=== PATIENT | male | born 1930 | race Caucasian/White ===

== ENCOUNTER 2017-07-17 03:39 | Inpatient (IN) | payer OTHER, MEDICARE ==
[~2017-07-17] VITALS: Ht 160 cm; Wt 58.2 kg
--- NOTE | 2017-07-17 03:46 | ED DYSPNEA/ASTHMA COMPLAINT ---
History of Present Illness General Chief Complaint: Dyspnea (COPD, CHF, Other) Stated Complaint: SOB Source: patient, family, old records, EMS Exam Limitations: clinical condition Vital Signs & Intake/Output Vital Signs & Intake/Output Vital Signs Date Time Temp Pulse Resp B/P B/P Pulse O2 O2 Flow FiO2 Mean Ox Delivery Rate 07/17 423 94 Nasal 2.0L Cannula 07/17 341 97 Nasal 2.0L Cannula 07/17 341 96.6 69 28 180/79 100 Ventilator 8L Allergies Coded Allergies: No Known Allergies (07/17/17) Reconcile Medications Allopurinol 100 MG TABLET 1 TAB PO DAILY GOUT (Reported) Amiodarone (Cordarone) 200 MG TAB 0.5 TAB PO Saturday HEART ( Reported) Aspirin (Ecotrin*) 81 MG TABLET.DR 1 TAB PO DAILY HEART HEALTH (Reported) Cholecalciferol (Vitamin D3) (Vitamin D) 1,000 UNIT TABLET 1 TAB PO DAILY BONE HEALTH (Reported) Ferrous Sulfate 325 MG (65 MG IRON) TABLET 1 TAB PO DAILY IRON (Reported) Finasteride 5 MG TABLET 1 TAB PO DAILY PROSTATE (Reported) Furosemide 20 MG TABLET 2 TAB PO 7:30AM CHF (Reported) Furosemide 20 MG TABLET 1 TAB PO QPM CHF (Reported) Labetalol HCl 100 MG TABLET 1 TAB PO TID HTN (Reported) Lisinopril 10 MG TABLET 1 TAB PO DAILY HTN (Reported) Minoxidil 10 MG TABLET 0.25 TAB PO DAILY HTN (Reported) Potassium Chloride 20 MEQ TAB.ER.PRT 1 TAB PO DAILY K REPLACEMENT (Reported) Pravastatin Sodium (Pravachol) 20 MG TABLET 1 TAB PO DAILY CHOL (Reported) Triage Nurses Notes Reviewed? yes Onset: Gradual Duration: day(s): Timing: recent history Severity: moderate Activities at Onset: none Prior Episodes/Possible Cause: occasional episodes Modifying Factors: Improves With: rest, other (improvedw/neb en route). Associated Symptoms: cough, wheezing HPI: 86 yo gentleman h/o copd, chf, presents with cough, phlegm, wheezing x 2-3 days, was seen by his PMD, prescribed antibiotics, but then tonight had increasing dyspnea, wheezing. 911 called. Pt with 02 sat 78% on his 2 liters NC via medics. Pt given duo neb en route with 02 sat 99%. He took an extra dose of lasix tonight. He has no fever, chest pain, diaphoresis. He is otherwise well. Past History Travel History Traveled to [place] past 21 day No Medical History Any Pertinent Medical History? see below for history Cardiovascular: CHF Respiratory: COPD Pneumonia Vaccine: 06/17/99 Influenza Vaccine: 05/15/10 Surgical History Surgical History: none Psychosocial History Who do you live with Spouse Services at Home None What is your primary language Belarusian Family History Hx Contributory? No Review of Systems Review of Systems Constitutional: Reports: no symptoms. EENTM: Reports: no symptoms. Respiratory: Reports: no symptoms. Cardiovascular: Reports: no symptoms. GI: Reports: no symptoms. Genitourinary: Reports: no symptoms. Musculoskeletal: Reports: no symptoms. Skin: Reports: no symptoms. Neurological/Psychological: Reports: no symptoms. Hematologic/Endocrine: Reports: no symptoms. Immunologic/Allergic: Reports: no symptoms. All Other Systems: Reviewed and Negative Physical Exam Physical Exam General Appearance: well developed/nourished, moderate distress Head: atraumatic, normal appearance Eyes: Bilateral: normal appearance. Ears, Nose, Throat: normal pharynx, normal ENT inspection Neck: normal inspection, supple, full range of motion Respiratory: rhonchi, wheezing, respiratory distress, prolonged expiratory phase Cardiovascular: regular rate/rhythm Gastrointestinal: normal bowel sounds, soft, non-tender, no organomegaly Extremities: normal inspection, normal capillary refill, normal range of motion, no edema Neurologic/Psych: no motor/sensory deficits, awake, alert, oriented x 3 Skin: intact, normal color, warm/dry Core Measures ACS in differential dx? No CVA/TIA Diagnosis No Sepsis Present: Yes Sepsis Focused Exam Completed? Yes Progress Differential Diagnosis: asthma, AMI, CHF, COPD, musculoskeletal pain, pneumonia Plan of Care: Orders Procedure Date/time Status Heart Healthy Diet 07/17 B Active TROPONIN LEVEL 07/17 1100 Active EKG 07/17 1100 Active TROPONIN LEVEL 07/17 0506 Active EKG 07/17 0506 Active ECHOCARDIOGRAM 07/17 0505 Active TRC EVALUATION (GEN) 07/17 050 Active OXYGEN SETUP (GEN) 07/17 050 Active Pathway - chart 07/17 050 Active House Staff 07/17 0503 Active Patient Data 07/17 050 Active Add-on Test (ER Only) 07/17 0454 Active Patient Data 07/17 448 Active Saline Lock 07/17 446 Active Misc Message 07/17 446 Active ED Holding Orders 07/17 446 Active Admit to inpatient 07/17 446 Active Vital Signs 07/17 446 Active Code Status 07/17 446 Active RAPID VIRAL INFLUENZA A 07/17 430 Complete URINALYSIS 07/17 427 Complete BLOOD CULTURE 07/17 349 Active B-TYPE NATRIURETIC PEP (BNP) 07/17 349 Active ARTERIAL BLOOD GAS (GEN) 07/17 345 Complete BLOOD CULTURE 07/17 345 Active TROPONIN LEVEL 07/17 344 Active LIPASE 07/17 344 Active HEPATIC FUNCTION PANEL 07/17 344 Active CBC WITHOUT DIFFERENTIAL 07/17 344 Complete BASIC METABOLIC PANEL 07/17 344 Active AMYLASE 07/17 344 Active EKG 07/17 339 Active VTE Mechanical Prophylaxis 07/17 UNK Active Vital Signs 07/17 UNK Active Telemetry/Licensed Esthetician 07/17 UNK Active Intake & Output 07/17 UNK Active FingerStick- Glucose 07/17 UNK Active Current Medications Sig/Rakesh Start time Last Medication Dose Stop Time Status Admin Enoxaparin Sodium 40 MG DAILY 07/17 1000 UNVr (Lovenox) Insulin Aspart 0 TIDAC 07/17 0800 UNVr (NovoLOG) Acetaminophen 650 MG Q6P PRN 07/17 514 UNVr (Tylenol) Acetaminophen 1,000 MG Q6P PRN 07/17 514 UNVr (Ofirmev) Morphine Sulfate 2 MG Q4P PRN 07/17 514 UNVr (Morphine) Oseltamivir Phosphate 75 MG ONCE ONE 07/17 514 UNVr (Tamiflu 75MG) 07/17 515 Furosemide 40 MG ONCE ONE 07/17 444 UNVr (Lasix) 07/17 445 Nitroglycerin 1 GM ONCE ONE 07/17 444 UNVr (Nitro-Bid) 07/17 445 Laboratory Tests 07/17/17 0430: pH 7.44, pCO2 37, pO2 184 H, HCO3 24, ABG O2 Sat (Measured) 99.0, P-50 (Temp Corrected) Y, Carboxyhemoglobin 0 L, O2 Concentration % 10 LPM, Temperature 96.6 L, O2 Delivery Method NEB VIA A/M, Phlebotomy Draw Site RIGHT RADIAL, Urine Color YEL, Urine Clarity CLEAR, Urine pH 6.0, Ur Specific [place] 1.015, Urine Protein NEG, Urine Ketones NEG, Urine Nitrite NEG, Urine Bilirubin NEG, Urine Urobilinogen 0.2, Ur Leukocyte Esterase NEG, Ur Microscopic SEDIMENT EXAMINED, Urine RBC RARE, Urine WBC RARE, Urine Bacteria RARE H, Urine Hemoglobin TRACE-INTACT H, Urine Glucose NEG 07/17/17 0350: Anion Gap 18 H, Estimated GFR 36 L, BUN/Creatinine Ratio 31.7 H, Glucose 110 H, Calcium 8.7, Total Bilirubin 0.7, Direct Bilirubin 0.4, AST 37, ALT 32, Alkaline Phosphatase 80, Troponin I 0.06, Cet-N-Rdpjwbgbdis Pept Pending, Total Protein 7.0, Albumin 4.1, Amylase 68, Lipase 192, CBC w Diff MAN DIFF ORDERED, RBC 4.16 L, MCV 92.2, MCH 30.2, MCHC 32.7 L, RDW 16.0 H, MPV 8.9, Gran % 86.1 H, Lymphocytes % 6.5 L, Monocytes % 7.3, Eosinophils % 0.1, Basophils % 0, Absolute Granulocytes 9.3 H, Segmented Neutrophils 83 H, Band Neutrophils 3, Absolute Lymphocytes 0.7 L, Lymphocytes 7 L, Monocytes 7, Absolute Monocytes 0.8 H, Absolute Eosinophils 0, Absolute Basophils 0, Platelet Estimate ADEQUATE , Polychromasia 1+, Hypochromic-Microcytic 1+, Poikilocytosis 1+, Ovalocytes 1+, Fld Total RBCs Counted 100 Microbiology 07/17 0435 NASOPHARYN: Influenza Virus A & B Rapid Smear - COMP INFLUENZA TYPE A 07/17 352 BLOOD: Blood Culture - RECD 07/17 349 BLOOD: Blood Culture - RECD Diagnostic Imaging: Viewed by Me: Radiology Read. Discussed w/RAD: Radiology Read. CXR Impression: interstitial edema PATIENT: ALIVIA CUNNINGHAM PRESENT AGE: 86 PATIENT ACCOUNT NO: [id number] : [birth year] LOCATION: [facility] ORDERING PHYSICIAN: Arcadio Toussaint MD SERVICE DATE: 07/17/17 EXAM TYPE: RAD - XRY-PORTABLE CHEST XRAY EXAMINATION: XR PORTABLE CHEST CLINICAL INFORMATION: Hypoxia COMPARISON: 06/21/2010 TECHNIQUE: Portable frontal view of the chest was obtained. FINDINGS: Cardiac leads overlie the chest. Increased interstitial markings with peribronchial cuffing. No pleural effusion or pneumothorax. The cardiomediastinal silhouette is prominent with a calcified aorta. IMPRESSION: Increased interstitial markings with peribronchial cuffing favoring interstitial edema, although a small airways process could have this appearance. DICTATED BY: Cam Dick MD DATE/TIME DICTATED:07/17/17402 COMMERCIAL LOAN ASSISTANT:[place] DATE/TIME TRANSCRIBED:07/17/17402 CONFIDENTIAL, DO NOT COPY WITHOUT APPROPRIATE AUTHORIZATION. <Electronically signed in Other Vendor System> SIGNED BY: Cam Dick MD 07/17/17406 Initial ED EKG: nsr, non specific st wave changes, pac, q waves Departure Departure Disposition: STILL A PATIENT Condition: Stable Clinical Impression Primary Impression: COPD exacerbation Secondary Impressions: CHF (congestive heart failure), Influenza, Renal failure, Sepsis Referrals: Kate Johnson MD (PCP/Family) Departure Forms: Customer Survey General Discharge Information Admission Note Spoke With: Brittany Perez MD Documentation of Exam: Documentation of any treatments & extenuating circumstances including Concerns Regarding Discharge (functional status, medication knowledge or non-compliance, living conditions, etc.) that warrant an admission rather than observation: pt with chf, influenza, copd exacerbation.... merits tamiflu, lasix, possibly with superimposed bacterial infection... pt given abx. Critical Care Note Critical Care Note Critical Care Time: 30-74 min
[2017-07-17 04:04] LABS: ABSOLUTE BASOPHIL COUNT 0 /CUMM (0.0-0.2); ABSOLUTE EOSINOPHIL COUNT 0 /CUMM (0.0-0.7); ABSOLUTE GRANULOCYTE CT 9.3 /CUMM (1.4-6.5); ABSOLUTE LYMPH COUNT 0.7 /CUMM (1.2-3.4); ABSOLUTE MONOCYTE COUNT 0.8 /CUMM (0.10-0.60); BASOPHIL % 0 % (0.0-2.0); EOSINOPHIL % 0.1 % (0-5); GRANULOCYTE % 86.1 % (42.2-75.2); HEMATOCRIT 38.4 % (42-52); MEAN CORPUSCULAR HGB 30.2 PG (27.0-31.0); MEAN CORPUSCULAR HGB CONC 32.7 G/DL (33.0-37.0); MEAN CORPUSCULAR VOLUME 92.2 FL (80.0-94.0); MEAN PLATELET VOLUME 8.9 FL (7.4-10.4); PLATELET COUNT 163 /CUMM (130-400); RED BLOOD CELL CT 4.16 /CUMM (4.70-6.10); WHITE BLOOD CELL COUNT 10.8 /CUMM (4.8-10.8)
--- NOTE | 2017-07-17 04:07 | RADIOLOGY REPORT ---
EXAMINATION: XR PORTABLE CHEST CLINICAL INFORMATION: Hypoxia COMPARISON: 06/21/2010 TECHNIQUE: Portable frontal view of the chest was obtained. FINDINGS: Cardiac leads overlie the chest. Increased interstitial markings with peribronchial cuffing. No pleural effusion or pneumothorax. The cardiomediastinal silhouette is prominent with a calcified aorta. IMPRESSION: Increased interstitial markings with peribronchial cuffing favoring interstitial edema, although a small airways process could have this appearance.
[2017-07-17] MEDS ORDERED: ALLOPURINOL100 M1 PO (04:57)
[2017-07-17] MEDS ORDERED: ASPIRIN EC81 M1 PO (04:59)
[2017-07-17] MEDS ORDERED: AMIODARONE HCL200 M1 PO (04:59)
[2017-07-17] MEDS ORDERED: VITAMIN D1000 UNIT PO (04:59)
[2017-07-17] MEDS ORDERED: FERROUS SULFAT325 M3 PO (05:00)
[2017-07-17] MEDS ORDERED: LABETALOL HCL100 M1 PO (05:01)
[2017-07-17] MEDS ORDERED: FINASTERIDE5 M1 PO (05:01)
[2017-07-17] MEDS ORDERED: LISINOPRIL10 M1 PO (05:02)
[2017-07-17] MEDS ORDERED: PRAVACHOL20 M2 PO (05:03)
[2017-07-17] MEDS ORDERED: POTASSIUM CHLO20 ME2 PO (05:03)
[2017-07-17] MEDS ORDERED: MINOXIDIL10 M1 PO (05:04)
[2017-07-17] MEDS ORDERED: FUROSEMIDE20 M1 PO ×2 (05:08→05:09)
--- NOTE | 2017-07-17 05:08 | History & Physical ---
Poncho PATEL,Pato 07/17/17 0507: General Information and HPI MD Statement: I have seen and personally examined ALIVIA CUNNINGHAM and documented this H&P. The patient is a 86 year old M who presented with a patient stated chief complaint of [shortness of breath]. Source of Information: patient, family, old records Exam Limitations: no limitations History of Present Illness: Patient is an 86-year-old male with a PMH significant for CAD status post angioplasty, HTN, COPD using 2L O2 NC PRN, CHF, CKD, recent compression fracture with decreased mobility, who presents complaining of worsening shortness of breath. For the past 45 days patient reports productive cough with yellow sputum and wheezing. He presented to his PCP one day prior to admission who prescribed 2 antibiotics however the patient and his family do not recall the names, and she took 1 dose of these prior to presentation. He reports taking 2 extra doses of furosemide and attempts to alleviate his worsening shortness of breath. When this did not alleviate his SOB is family called 911. Patient has had numerous previous admissions for CHF exacerbations and at baseline he becomes fatigued with minimal exertion. He has had a significant decrease in his mobility after a L2 compression fracture in early June. EMS reports that his O2 saturation was 78% when they arrived on 2 L O2 NC. His was sick with flu like symptoms last week she did not get tested. Patient denies any chest pain, palpitations, lower extremity edema, lightheadedness, dizziness, loss of consciousness, diaphoresis, nausea, vomiting, fever, chills. Allergies/Medications Allergies: Coded Allergies: No Known Allergies (07/17/17) Past History Travel History Traveled to [place] past 21 day No Medical History Cardiovascular: CHF Respiratory: COPD Renal: chronic kidney disease, hematuria Cancer(s): basal cell carcinoma Pneumonia Vaccine: 06/17/99 Influenza Vaccine: 05/15/10 Surgical History Surgical History: angioplasty, bilateral CEA Past Family/Social History Psychosocial History Where do you live? Home Services at Home: None Smoking Status: Former Smoker (50 pack years) ETOH Use: heavy use (daily) Functional Ability Ambulation: non-ambulatory (since injury on 06/18/17) Review of Systems Review of Systems Constitutional: Denies: chills, diaphoresis, fever. EENTM: Reports: no symptoms. Cardiovascular: Denies: chest pain, palpitations, peripheral edema, syncope. Respiratory: Reports: cough, short of breath, sputum production. GI: Denies: diarrhea, nausea, bloody stool, vomiting. Genitourinary: Denies: dysuria, frequency, hematuria. Musculoskeletal: Reports: back pain, muscle pain (chronic LE pain). Exam & Diagnostic Data Last 24 Hrs of Vital Signs/I&O Vital Signs Date Time Temp Pulse Resp B/P B/P Pulse O2 O2 Flow FiO2 Mean Ox Delivery Rate 07/17 0522 98.6 64 24 152/69 98 Nasal 2.0L Cannula 07/17 0424 94 Nasal 2.0L Cannula 07/17 341 97 Nasal 2.0L Cannula 07/17 341 96.6 69 28 180/79 100 Ventilator 8L Intake & Output 07/17 0800 07/17 0000 07/16 1600 Intake Total 250 Output Total 350 Balance -100 Intake, IV 250 Output, Urine 350 Patient 134 lb Weight Physical Exam General Appearance Alert, Oriented X3, Cooperative, No Acute Distress Skin Temp/Moisture Exam: Warm/Dry Sepsis Skin Exam (color): Normal for Ethnicity HEENT Atraumatic, EOMI, Mucous Membr. moist/pink Cardiovascular Regular Rate, Normal S1, Normal S2, No Murmurs Lungs diffuse rhonchi and wheezing Abdomen Normal Bowel Sounds, Soft, No Tenderness Neurological Normal Speech, Sensation Intact Extremities No Clubbing, No Cyanosis, No Edema, Normal Pulses, No Tenderness/ Swelling Sepsis Peripheral Pulse Location: Posterior Tibialis Sepsis Peripheral Pulse Exam: Normal Sepsis Cap Refill Exam: <2 Sec Last 24 Hrs of Labs/Niraj: Laboratory Tests 07/17/17 0506: Troponin I Cancelled 07/17/17 0430: pH 7.44, pCO2 37, pO2 184 H, HCO3 24, ABG O2 Sat (Measured) 99.0, P-50 (Temp Corrected) Y, Carboxyhemoglobin 0 L, O2 Concentration % 10 LPM, Temperature 96.6 L, O2 Delivery Method NEB VIA A/M, Phlebotomy Draw Site RIGHT RADIAL, Urine Color YEL, Urine Clarity CLEAR, Urine pH 6.0, Ur Specific [place] 1.015, Urine Protein NEG, Urine Ketones NEG, Urine Nitrite NEG, Urine Bilirubin NEG, Urine Urobilinogen 0.2, Ur Leukocyte Esterase NEG, Ur Microscopic SEDIMENT EXAMINED, Urine RBC RARE, Urine WBC RARE, Urine Bacteria RARE H, Urine Hemoglobin TRACE-INTACT H, Urine Glucose NEG 07/17/17 0350: Anion Gap 18 H, Estimated GFR 36 L, BUN/Creatinine Ratio 31.7 H, Glucose 110 H, Calcium 8.7, Total Bilirubin 0.7, Direct Bilirubin 0.4, AST 37, ALT 32, Alkaline Phosphatase 80, Troponin I 0.06, Wgz-L-Mqbdedvvcid Pept 55006 H, Total Protein 7.0, Albumin 4.1, Amylase 68, Lipase 192, CBC w Diff MAN DIFF ORDERED, RBC 4.16 L, MCV 92.2, MCH 30.2, MCHC 32.7 L, RDW 16.0 H, MPV 8.9, Gran % 86.1 H, Lymphocytes % 6.5 L, Monocytes % 7.3, Eosinophils % 0.1, Basophils % 0, Absolute Granulocytes 9.3 H, Segmented Neutrophils 83 H, Band Neutrophils 3, Absolute Lymphocytes 0.7 L, Lymphocytes 7 L, Monocytes 7, Absolute Monocytes 0.8 H, Absolute Eosinophils 0, Absolute Basophils 0, Platelet Estimate ADEQUATE , Polychromasia 1+, Hypochromic-Microcytic 1+, Poikilocytosis 1+, Ovalocytes 1+, Fld Total RBCs Counted 100 Microbiology 07/17 0435 NASOPHARYN: Influenza Virus A & B Rapid Smear - COMP INFLUENZA TYPE A 07/17 352 BLOOD: Blood Culture - RECD 07/17 349 BLOOD: Blood Culture - RECD Diagnostic Data EKG Results NSR HR 68 PAC diffuse T wave inversion [place] 199 QTc 532 CXR Results Increased interstitial markings with peribronchial cuffing Assessment/Plan Assessment: Patient is an 86-year-old male with a PMH significant for CAD status post angioplasty, HTN, COPD using 2L O2 NC PRN, CHF, CKD, gout recent compression fracture with decreased mobility, who presents complaining of worsening shortness of breath. Patient has had numerous admissions for CHF exacerbations in the past, normally goes to [facility]. He has had a 4-5 day history of productive cough and wheezing. VS on admission: T 96.6, P 69, RR 28, BP 180/79, pulse ox 100% on 8 L Labs on admission: WBC 10.8, H/H 12.6/30.4, PLT 163, Na 143, K 4.1, Cl 98, CO2 27, BUN 57, Cr 1.8, GLUCOSE 110, AB.44/37/184/24, UA unremarkable, rapid flu swab positive for influenza type A, ProBNP 14,200 Problem list #Multifactorial shortness of breath #CHF exacerbation #COPD exacerbation #Influenza #History of DM (diet controlled), HTN, CKD (baseline creatinine unknown, possibly REYNALDO), gout, L2 compression fx Plan -Admit to telemetry -Continuous pulse ox and telemetry monitoring -Rule out ACS with serial troponin and EKG -Obtain most recent echo report from computer designer -obtain baseline BUN/Cr and base lasix dosing on renal function in AM -TRC/Nebs -IV Solu-Medrol 40 mg every 12 -Tamiflu -Flu precautions -sputum culture -fingerstick glucose TIDAC/HS -Novolog sliding scale look sliding scale As Ranked By This Provider Problem List: 1. COPD exacerbation 2. CHF (congestive heart failure) 3. Influenza Core Measures/Misc (03/03) Acute Coronary Syndrome ACS Diagnosis: No Congestive Heart Failure Congestive Heart Failure Diagnosis Yes Last Known EF % 60 Cerebrovascular Accident CVA/TIA Diagnosis: No VTE (View Protocol) VTE Risk Factors Immobility No Mechanical VTE Prophylaxis d/t N/A MechProphylax Ordered No VTE Pharm Prophylaxis d/t NA PharmProphylax ordered Sepsis (View protocol) Sepsis Present: No Brittany Perez 07/17/17 0554: General Information and HPI Allergies/Medications Home Med list Allopurinol 100 MG TABLET 1 TAB PO DAILY GOUT (Reported) Amiodarone (Cordarone) 200 MG TAB 0.5 TAB PO Saturday HEART ( Reported) Aspirin (Ecotrin*) 81 MG TABLET.DR 1 TAB PO DAILY HEART HEALTH (Reported) Cholecalciferol (Vitamin D3) (Vitamin D) 1,000 UNIT TABLET 1 TAB PO DAILY BONE HEALTH (Reported) Ferrous Sulfate 325 MG (65 MG IRON) TABLET 1 TAB PO DAILY IRON (Reported) Finasteride 5 MG TABLET 1 TAB PO DAILY PROSTATE (Reported) Furosemide 20 MG TABLET 2 TAB PO 7:30AM CHF (Reported) Furosemide 20 MG TABLET 1 TAB PO QPM CHF (Reported) Labetalol HCl 100 MG TABLET 1 TAB PO TID HTN (Reported) Lisinopril 10 MG TABLET 1 TAB PO DAILY HTN (Reported) Minoxidil 10 MG TABLET 0.25 TAB PO DAILY HTN (Reported) Potassium Chloride 20 MEQ TAB.ER.PRT 1 TAB PO DAILY K REPLACEMENT (Reported) Pravastatin Sodium (Pravachol) 20 MG TABLET 1 TAB PO DAILY CHOL (Reported) Attending MD Review Statement Attending Statement Attending MD Statement: examined this patient, discuss w/resident/PA/HOURLY SHIFT, agreed w/resident/PA/HOURLY SHIFT, discussed with family, reviewed EMR data (avail), reviewed images, amended to note Attending Assessment/Plan: CC: Acute worsening of shortness of breath PMH: Gout, diet-controlled diabetes, COPD (2 L NC intermittent), HTN, HF History is obtained from patient's daughter, patient is hard of hearing. Daughter noticed since last 3-4 days patient has having excessive cough with yellow colored sputum production, difficulty breathing. 2 days back he was seen by a physician and was prescribed 2 different types of antibiotics, patient may have taken one dose. Breathing and cough was progressively getting worse, over the evening the breathing was so difficult that they had to call EMS. Patient took 2 extra doses of furosemide before coming to ER. Patient's was sick last week probably influenza but not tested. Patient's symptoms did not start with nasal congestion, runny nose did not have any fever or myalgias. Patient currently and denies any chest pain, chest tightness and is feeling much better as compared to when he came in. Patient usually gets admitted in [facility] for heart failure or COPD. vitals: T max 98.6, pulse 64, RR 28, blood pressure 180/79 on arrival, saturating 100% on 2 L. On exam: A O 3, cooperative, thin built, mild respiratory distress, neck supple , JVD elevated, no lymphadenopathy, mucosa moist, no focal neurological deficit, no dependent edema, no obvious skin rashes or inflammation CVS: S1-S2, irregular. RS: Bilateral crackles and rhonchi. Abdomen: Soft, NT, ND, bowel sounds present. Labs: WBC 10.8, hemoglobin 12.6, hematocrit 38.4, platelets 163, neutrophils 86% , bands 3, sodium 143, potassium 4.1, chloride 98, right 27, BUN 57, creatinine 1.8, anion gap 18, glucose 110, calcium 8.7, LFT unremarkable, troponin 0.06 AB.44/37/184/24 on 10 L UA: Unremarkable Influenza A+ CXR:Increased interstitial markings with peribronchial cuffing favoring interstitial edema, although a small airways process could have this appearance. Assessment and plan 86-year-old male with above-mentioned past medical history presented in ER for acute worsening of shortness of breath. Patient has been noticing cough and yellow colored sputum production since last 3-4 days but this breathing got progressively worse and today he had to call EMS. He took couple of tablets of furosemide before calling EMS, which is started working by the time he arrived. He was immediately started on DuoNeb, combination of both by mouth furosemide and your develops his respiration was much better by the time he was in ER. He has elevated JVD, coarse crackles and rhonchi bilaterally but no significant pedal edema. He denies any chest pain and chest tightness. X-ray suggestive of interstitial marking probably secondary to heart failure. Small airway disease could not be excluded as patient also has influenza A+. Sick contacts. Pulse is irregular, daughter states that patient may have history of A. fib. Patient is not currently on any anticoagulation. Daughter requests not to change much of his cardiac medications because it has been difficult to manage, patient's computer designer Dr. Weir should be consulted before making changes. Creatinine is 1.8, baseline not known. He also had compression fracture of L2 vertebra approximately a month back and has been using a back brace at home, not much ambulating. + Acute on chronic heart failure with unknown ejection fraction + Influenza a + Creatinine 1.8 : REYNALDO Vs CKD + History of Gout, diet-controlled diabetes, COPD, HTN, HF - Admit to telemetry - Continuous telemetry monitoring - Try to wean off oxygen - Diuresis according to computer designer and next creatinine - Strict I's and O's - Daily weights - Serial troponin and EKGs - 2-D echo in a.m. if any EKG changes or elevated troponin, obtain his recent 2- D echo report from his computer designer - Cardiology consult in a.m. - DVT prophylaxis - Continue Tamiflu - Continue TRC and nebulization - Accu-Cheks - IV Solu-Medrol 40 mg twice a day - Continue back brace - Continue rest of his home medications Yomi PATEL,Krjammiei 07/17/17 0651: Resident Review Statement Resident Statement: examined this patient, discussed with staff internist office based only, agreed with staff internist office based only, discussed with family Other Findings: HPI: This is an 86-year-old male with PMH of COPD on 2 L O2, CHF (last exacerbation almost 1 year ago), CAD status post angioplasty, diet controlled diabetes, hypertension, previous history of A. fib, and a recent compression fracture of L2 on June 2017, who comes in for chief complaint of shortness of breath. Patient noted significant work of breathing at rest for about 1 or 2 hours this evening. He took 2 extra tabs of his diuretic thinking it would help , however, when his symptoms do not improve he called EMS. He was found to be satting around 78% on his baseline 2 L and subsequently brought to ED. Patient states that he has been noticing worsening cough and wheezing for about the last week or so. This past Saturday he went to see his PCP and was prescribed 2 antibiotics. He only took one of them for one dose. He is unsure of the medications. Apparently a chest x-ray was done at that time and was largely normal. Denies any fevers, chills, body aches, malaise, vomiting, diarrhea, change in bladder or bowel movement. He endorses sick contact in his who had URI symptoms about a week ago. Notably patient has lost 18 pounds since last April and weight loss seems to be accelerated after compression fracture. He sees computer designer Bob Marques and mower sharpener Fredi Rangel. Patient has long history of CHF and states anytime he becomes short of breath usually takes an extra dose of his diuretic which usually resolves the symptoms. He took 2 today but found no relief which is why he came to the ED. Surgical history significant for endarterectomy, multiple cardiac cath, social history significant for [id number] smoking history but quit over 30 years ago. ED workup shows: Positive influenza, AB.44, PCO2 37, bicarbonate 24. BUN 57, creatinine 1.8, with a gap of 18. Chest x-ray shows increased interstitial markings with peribronchial cuffing with possible interstitial edema versus small airway process. EKG shows rate 68 with diffuse T-wave inversion. QTc 532. One PAC ASSESSMENT: This is an 86-year-old gentleman with past medical history of COPD on 2 L, CHF, CAD, diet controlled DM, hypertension, recent compression fracture, who comes in for chief complaint of shortness of breath. He was influenza positive in ED. Additionally, evidence of interstitial edema on x-ray, prominent JVD, and lung exam with significant crackles wheezing and rhonchi patient likely has concurrent exacerbation of heart failure. PLAN: CHF: Patient sees Dr. Bob Marques for cardiology. Apparently he saw his specialist about a month ago. Daughter states that he also had an echocardiogram at that time. Please obtain records. His baseline regimen is Lasix 20mg in pm and 40mg at am. On day of admission he took an additional 40mg at night and in ER he got 40mg IV. Monitor Cr in AM and reassess Lasix regimen. * Cardio consult with Dr. Byrne * If echocardiogram unavailable or patient significantly decompensates consider getting an echo * Get records from his computer designer * Troponin/ EKG * Strict I's and O's * Sputum culture Question AK I: Patient's creatinine 1.8. Records we have from his previous visit in 2009 shows values between 1.1-1.4. Unsure of patient's baseline. He is having good urine output. Obtain records. Diurese with caution. Note patient got 40 of IV Lasix in ED in addition to his home regimen plus tabs * Monitor urine output * Obtain records * Hold lisinopril * Hold allopurinol * Avoid NSAIDs Influenza: * Start Tamiflu * Precautions Diabetes: * Regular Insulin sliding scale * Fingerstick COPD: Patient received 125 of IV Solu-Medrol in ED. He is back to his baseline 2 L O2. * Continue steroids at 40 every 12. Hypertension: * Continue labetalol 100 mg po BID * Holding Lisinopril Prev hx of a.fib: * Con't Amiodarone 200mg; .5 TAB PO MWF * Con't ASA Recent compresion fracture: * Con't back brace FC CHEM DVT PPX HH Diet
--- NOTE | 2017-07-17 05:56 | Admission Certification ---
Admission Certification Certification Statement - As attending physician, I certify that at the time of - admission, based on clinical presentation, severity of - symptoms, need for further diagnostic testing and - therapeutic interventions, and risk of adverse outcomes - without in-hospital treatment, in my clinical assessment, - this patient requires an acute hospital stay for a minimum - of two nights or longer. I have also considered psychsocial - factors such as support system, advanced age, financial - issues, cognitive issues, and failed out-patient treatments, - past re-admission history, safety of patient, and lack of - compliance as applicable. Specific rationale supporting this admission is: Acute and chronic heart failure, influenza
--- NOTE | 2017-07-17 07:40 | Event Note ---
Event Note Event Note: 86 yo M with pmh of COPD on 2L/min O2 baseline, CHF 40/20 mg Lasix baseline, CAD s/p angioplasty, HTN, CKD (Cr 1.2 baseline at 2009), L2 compression fracture came in with increased shortness of breath x 1 day and cough and wheeze x 1 week. 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 This AM, he is resting in the bed, on O2 via NC, not in distress but still coughing. O2 running between 2-3 L/min (baseline 2L/min). He is currently admitted in the tele for management of folowing issues: # Acute on Chronic CHF: Will continue diuretic therpay with IV Lasix 40 mg daily. Daily I/O and weight monitoring. BEP check tomorrow. Echocardiogram ordered. Requested for medical records from [facility] cardiology unit/echo. Will follow Cardiology recs. #COPD Exacerbation: Likely 2/2 Influenza infection. Will treat with Tamiflu, as well as steroids. IV solumedrol q12 h today. If improving, will change to PO Prednisone tomorrow. #Influenza A: Will continue Tamiflu per renal dose which is 30 mg daily (regualr dose is 75 mg BID otherwise). Continue resp precautions with masks and hand washing. #Diet: Heart healthy diet #DVT ppx: SC heparin #Code status: Full code
--- NOTE | 2017-07-17 10:17 | Cons- Cardiology ---
General Information and HPI Consulting Request Date of Consult: 07/17/17 Requested By: Brittany Perez MD Reason for Consult: Congestive heart failure in a patient with known heart disease. Source of Information: patient, old records Exam Limitations: language barrier History of Present Illness: The patient is an 86-year-old man who is taken care of mostly in the [place] area. His a&p technician is Dr. Carrera. He was last here in 2009 with an episode of congestive heart failure. An echo at that time showed mild aortic stenosis and good LV systolic function and mild pulmonary hypertension. The patient states he has had 2 or 3 days of increasing shortness of breath and came to the emergency room this morning. He was found to be in congestive heart failure on chest x-ray. His BNP is 14,200 and his initial troponin is negative. His EKG shows a lot of chronic changes but no acute changes. He denies chest pain at this time. He is an ex-smoker. Allergies/Medications Allergies: Coded Allergies: No Known Allergies (07/17/17) Home Med List: Allopurinol 100 MG TABLET 1 TAB PO DAILY GOUT (Reported) Amiodarone (Cordarone) 200 MG TAB 0.5 TAB PO Saturday HEART ( Reported) Aspirin (Ecotrin*) 81 MG TABLET.DR 1 TAB PO DAILY HEART HEALTH (Reported) Cholecalciferol (Vitamin D3) (Vitamin D) 1,000 UNIT TABLET 1 TAB PO DAILY BONE HEALTH (Reported) Ferrous Sulfate 325 MG (65 MG IRON) TABLET 1 TAB PO DAILY IRON (Reported) Finasteride 5 MG TABLET 1 TAB PO DAILY PROSTATE (Reported) Furosemide 20 MG TABLET 2 TAB PO 7:30AM CHF (Reported) Furosemide 20 MG TABLET 1 TAB PO QPM CHF (Reported) Labetalol HCl 100 MG TABLET 1 TAB PO TID HTN (Reported) Lisinopril 10 MG TABLET 1 TAB PO DAILY HTN (Reported) Minoxidil 10 MG TABLET 0.25 TAB PO DAILY HTN (Reported) Potassium Chloride 20 MEQ TAB.ER.PRT 1 TAB PO DAILY K REPLACEMENT (Reported) Pravastatin Sodium (Pravachol) 20 MG TABLET 1 TAB PO DAILY CHOL (Reported) Current Medications: Current Medications Sig/Rakesh Start time Last Medication Dose Route Stop Time Status Admin Acetaminophen 650 MG Q6P PRN 07/17 514 AC PO Acetaminophen 1,000 MG Q6P PRN 01/31 0515 AC IV Albuterol Sulfate 3 ML ONCE ONE 07/17 0400 DC 07/17 INH 07/17 040 0424 Amiodarone HCl 100 MG 07/17 1000 AC PO Aspirin Buffered 81 MG DAILY 07/17 1000 AC PO Azithromycin 500 MG ONCE ONE 07/17 0400 DC 07/17 Dextrose/Water 250 ML IV 07/17 0459 0424 Ceftriaxone Sodium 0 .STK-MED ONE 07/17 0419 DC .ROUTE Ceftriaxone Sodium 1,000 MG ONCE ONE 07/17 0400 DC 07/17 IV 07/17 040 0424 Enoxaparin Sodium 30 MG DAILY 07/17 1000 AC SC Finasteride 5 MG DAILY 07/17 1000 AC PO Furosemide 0 .STK-MED ONE 07/17 0518 DC IV Furosemide 40 MG ONCE ONE 07/17 0445 DC 07/17 IV 07/17 044 0523 Insulin Aspart 0 TIDAC 07/17 0800 AC SC Ipratropium [place] 2.5 ML ONCE ONE 07/17 0400 DC 07/17 INH 07/17 400 0424 Labetalol HCl 100 MG TID 07/17 1000 AC PO Methylprednisolone 40 MG Q12 07/17 1000 AC IV Methylprednisolone 0 .STK-MED ONE 07/17 0418 DC .ROUTE Methylprednisolone 125 MG ONCE ONE 07/17 0345 DC 07/17 IV 07/17 034 0420 Morphine Sulfate 2 MG Q4P PRN 07/17 0515 AC IV Nitroglycerin 0 .STK-MED ONE 07/17 0518 DC TOP Nitroglycerin 1 GM ONCE ONE 07/17 0445 DC 07/17 TOP 07/176 0523 Oseltamivir Phosphate 75 MG BID 07/17 1000 CAN PO 07/21 0959 Oseltamivir Phosphate 30 MG ONCE ONE 07/17 0530 CAN PO 07/17 0531 Oseltamivir Phosphate 30 MG ONCE ONE 07/17 0515 DC 07/17 PO 07/17 0516 0532 Pravastatin Sodium 20 MG DAILY 07/17 1000 AC PO Review of Systems Review of Systems: He has no complaints in the review of systems at this time. Past History Travel History Traveled to [place] past 21 day No Medical History Cardiovascular: CHF Respiratory: COPD Renal: chronic kidney disease, hematuria Cancer(s): basal cell carcinoma Surgical History Surgical History: angioplasty bilateral CEA Psychosocial History Where Do You Live? Home Services at Home: None Smoking Status: Former Smoker (50 pack years) ETOH Use: heavy use (daily) Functional Ability Ambulation: non-ambulatory (since injury on 06/18/17) Exam & Diagnostic Data Vital Signs and I&O Vital Signs Date Time Temp Pulse Resp B/P B/P Pulse O2 O2 Flow FiO2 Mean Ox Delivery Rate 07/17 0850 98.0 87 20 164/74 97 Nasal 3.0L Cannula 07/17 0645 97.5 54 20 154/70 96 Nasal 3.0L Cannula 07/17 05 98.6 64 24 152/69 98 Nasal 2.0L Cannula 07/17 0424 94 Nasal 2.0L Cannula 07/17 341 97 Nasal 2.0L Cannula 07/17 341 96.6 69 28 180/79 100 Ventilator 8L Intake & Output 07/17 1600 07/17 0800 07/17 0000 07/16 1600 07/16 0800 07/16 0000 Intake Total 120 250 Output Total 200 850 Balance -80 -600 Intake, IV 250 Intake, Oral 120 Output, Urine 200 850 Patient 134 lb Weight Physical Exam: Elderly man in mild respiratory distress HEENT exam normal Neck veins not distended Carotids normal Chest diffuse coarse rales rhonchi and some mild wheezing Heart slightly irregular rhythm grade 2 to 3/6 systolic ejection murmur at the base Extremities no edema Labs/Niraj Results: Laboratory Tests 07/17 07/17 07/17 0948 0506 0431 Chemistry Sodium Pending Potassium Pending Chloride Pending Carbon Dioxide Pending Anion Gap Pending BUN Pending Creatinine Pending BUN/Creatinine Ratio Pending Troponin I Pending Cancelled Hematology CBC w Diff Pending WBC Pending RBC Pending Hgb Pending Hct Pending MCV Pending MCH Pending MCHC Pending RDW Pending Plt Count Pending MPV Pending Serology Virus Culture Pending 07/17 07/17 0430 0350 Blood Gas pH (7.35 - 7.45 PH) 7.44 pCO2 (35 - 45 TORR) 37 pO2 (80 - 100 TORR) 184 H HCO3 (21 - 28 MEQ/L) 24 ABG O2 Sat (Measured) (>96.0 %) 99.0 P-50 (Temp Corrected) Y Carboxyhemoglobin (1.5 - 5.0 %) 0 L O2 Concentration % 10 LPM Temperature (97.0 - 100.0 FARH) 96.6 L O2 Delivery Method NEB VIA A/M Chemistry Sodium (137 - 145 mmol/L) 143 Potassium (3.5 - 5.1 mmol/L) 4.1 Chloride (98 - 107 mmol/L) 98 Carbon Dioxide (22 - 30 mmol/L) 27 Anion Gap (5 - 16) 18 H BUN (9 - 20 mg/dL) 57 H Creatinine (0.7 - 1.2 mg/dL) 1.8 H Estimated GFR (>60 ml/min) 36 L BUN/Creatinine Ratio (7 - 25 %) 31.7 H Glucose (65 - 99 mg/dL) 110 H Calcium (8.4 - 10.2 mg/dL) 8.7 Total Bilirubin (0.2 - 1.3 mg/dL) 0.7 Direct Bilirubin (< 0.4 mg/dL) 0.4 AST (17 - 59 U/L) 37 ALT (21 - 72 U/L) 32 Alkaline Phosphatase (< 127 U/L) 80 Troponin I (<0.11 ng/ml) 0.06 Dmc-U-Zeovpiudpma Pept (<125 pg/mL) 18928 H Total Protein (6.3 - 8.2 g/dL) 7.0 Albumin (3.5 - 5.0 g/dL) 4.1 Amylase (30 - 110 U/L) 68 Lipase (23 - 300 U/L) 192 Hematology CBC w Diff MAN DIFF ORDERED WBC (4.8 - 10.8 /CUMM) 10.8 RBC (4.70 - 6.10 /CUMM) 4.16 L Hgb (14.0 - 18.0 G/DL) 12.6 L Hct (42 - 52 %) 38.4 L MCV (80.0 - 94.0 FL) 92.2 MCH (27.0 - 31.0 PG) 30.2 MCHC (33.0 - 37.0 G/DL) 32.7 L RDW (11.5 - 14.5 %) 16.0 H Plt Count (130 - 400 /CUMM) 163 MPV (7.4 - 10.4 FL) 8.9 Gran % (42.2 - 75.2 %) 86.1 H Lymphocytes % (20.5 - 51.1 %) 6.5 L Monocytes % (1.7 - 9.3 %) 7.3 Eosinophils % (0 - 5 %) 0.1 Basophils % (0.0 - 2.0 %) 0 Absolute Granulocytes (1.4 - 6.5 /CUMM) 9.3 H Segmented Neutrophils (42.2 - 75.2 %) 83 H Band Neutrophils (0.0 - 5.0 %) 3 Absolute Lymphocytes (1.2 - 3.4 /CUMM) 0.7 L Lymphocytes (20.5 - 51.1 %) 7 L Monocytes (1.7 - 9.3 %) 7 Absolute Monocytes (0.10 - 0.60 /CUMM) 0.8 H Absolute Eosinophils (0.0 - 0.7 /CUMM) 0 Absolute Basophils (0.0 - 0.2 /CUMM) 0 Platelet Estimate (ADEQUATE) ADEQUATE Polychromasia 1+ Hypochromic-Microcytic 1+ Poikilocytosis 1+ Ovalocytes 1+ Miscellaneous Phlebotomy Draw Site RIGHT RADIAL Other Body Source Fld Total RBCs Counted (%) 100 Urines Urine Color (YEL,AMB,STR) YEL Urine Clarity (CLEAR) CLEAR Urine pH (5.0 - 8.0) 6.0 Ur Specific [place] (1.001 - 1.035) 1.015 Urine Protein (NEG,<30 MG/DL) NEG Urine Ketones (NEG) NEG Urine Nitrite (NEG) NEG Urine Bilirubin (NEG) NEG Urine Urobilinogen (0.1 - 1.0 EU/dl) 0.2 Ur Leukocyte Esterase (NEG) NEG Ur Microscopic SEDIMENT EXAMINED Urine RBC (0 - 5 /HPF) RARE Urine WBC (0 - 2 /HPF) RARE Urine Bacteria (NEG/NONE) RARE H Urine Hemoglobin (NEG) TRACE-INTACT H Urine Glucose (N MG/DL) NEG Diagnostic Data EKG Results EKG shows sinus rhythm rate of 68, occasional PAC, diffuse ST-T wave abnormalities, prolonged QT interval. CXR Results PATIENT: ALIVIA CUNNINGHAM PRESENT AGE: 86 PATIENT ACCOUNT NO: [id number] : [birth year] LOCATION: [facility] ORDERING PHYSICIAN: Arcadio Toussaint MD SERVICE DATE: 07/17/178472 EXAM TYPE: RAD - XRY-PORTABLE CHEST XRAY EXAMINATION: XR PORTABLE CHEST CLINICAL INFORMATION: Hypoxia COMPARISON: 06/21/2010 TECHNIQUE: Portable frontal view of the chest was obtained. FINDINGS: Cardiac leads overlie the chest. Increased interstitial markings with peribronchial cuffing. No pleural effusion or pneumothorax. The cardiomediastinal silhouette is prominent with a calcified aorta. IMPRESSION: Increased interstitial markings with peribronchial cuffing favoring interstitial edema, although a small airways process could have this appearance. DICTATED BY: Cam Dick MD DATE/TIME DICTATED:07/17/17402 PRECISION LENS TECHNICIAN:[place] DATE/TIME TRANSCRIBED:07/17/17402 CONFIDENTIAL, DO NOT COPY WITHOUT APPROPRIATE AUTHORIZATION. <Electronically signed in Other Vendor System> SIGNED BY: Mayelin PATEL,Cam 07/17 Assessment/Plan Assessment/Plan The patient is an 86-year-old man with known coronary artery disease with previous stenting but apparently not bypass surgery. He also has a history of paroxysmal atrial fibrillation but is in sinus rhythm at this time.. He was last here in 2009 with congestive heart failure. It is unclear whether he has had hospitalizations in the interim. He presents with shortness of breath. His chest x-ray shows clear-cut congestive heart failure and cardiomegaly. He has had some degree of aortic stenosis in the past and this may have progressed. I recommend IV diuretics and an echocardiogram for now. I would keep him on his usual medical regimen except to change his diuretics to intravenous. We will get serial EKGs and enzymes. I recommend getting records from his regular a&p technician to see if there are any other issues that need to be addressed at this time. Copies To: Elizabeth PATEL,Kate Grimaldo; Deandre PATEL,Bob Logan Consult Acknowledgment - Thank you for your consult request.
[2017-07-17 10:28] LABS: ABSOLUTE BASOPHIL COUNT 0 /CUMM (0.0-0.2); ABSOLUTE EOSINOPHIL COUNT 0 /CUMM (0.0-0.7); ABSOLUTE GRANULOCYTE CT 7.6 /CUMM (1.4-6.5); ABSOLUTE LYMPH COUNT 0.4 /CUMM (1.2-3.4); ABSOLUTE MONOCYTE COUNT 0.1 /CUMM (0.10-0.60); BASOPHIL % 0.1 % (0.0-2.0); EOSINOPHIL % 0.1 % (0-5); HEMATOCRIT 37.6 % (42-52); MEAN CORPUSCULAR HGB 30.4 PG (27.0-31.0); MEAN CORPUSCULAR HGB CONC 33.1 G/DL (33.0-37.0); MEAN CORPUSCULAR VOLUME 91.8 FL (80.0-94.0); MEAN PLATELET VOLUME 9.3 FL (7.4-10.4); RBC DISTRIBUTION WIDTH 16.1 % (11.5-14.5); RED BLOOD CELL CT 4.09 /CUMM (4.70-6.10); WHITE BLOOD CELL COUNT 8.1 /CUMM (4.8-10.8)
[2017-07-17 10:41] LABS: GRANULOCYTE % 93.9 % (42.2-75.2); PLATELET COUNT 155 /CUMM (130-400)
--- NOTE | 2017-07-17 14:20 | PN- Att Addend ---
Attending Addendum Attending Brief Note Patient seen and examined. Lying in bed not in acute distress. Family present at the bedside. Denies chest pain. Denies shortness of breath. Denies palpitations. Reports productive cough. He is currently afebrile hemodynamically stable. He is currently maintaining saturation on 2 L of oxygen. Vital Signs Date Time Temp Pulse Resp B/P B/P Pulse O2 O2 Flow FiO2 Mean Ox Delivery Rate 07/17 1310 98.8 64 22 130/76 94 Nasal 2.0L Cannula 07/17 1140 97.6 51 18 131/62 98 Room Air 07/17 1030 Nasal 3.0L Cannula 07/17 1030 95 Nasal 3.0L Cannula 07/17 1010 98.0 63 20 168/72 07/17 1010 98.0 63 20 168/72 07/17 1000 63 20 168/72 99 Nasal 3.0L Cannula 07/17 0850 98.0 87 20 164/74 97 Nasal 3.0L Cannula 07/17 0645 97.5 54 20 154/70 96 Nasal 3.0L Cannula 07/17 0522 98.6 64 24 152/69 98 Nasal 2.0L Cannula 07/17 0424 94 Nasal 2.0L Cannula 07/17 0342 97 Nasal 2.0L Cannula 07/17 0342 96.6 69 28 180/79 100 Ventilator 8L General appearance: Elderly male, lethargic. Heart: S1-S2 regular. No audible murmur Lungs: Fair entry bilaterally with diffuse rhonchi. Abdomen: Soft, nontender with normal bowel sounds. Extremities: No pedal edema. Neurologic: No gross focal deficits. Laboratory Tests 07/17/17 1100: Troponin I Cancelled 07/17/17 0948: Anion Gap 15, Estimated GFR 41 L, BUN/Creatinine Ratio 34.4 H, Troponin I 0.06 , CBC w Diff NO MAN DIFF REQ, RBC 4.09 L, MCV 91.8, MCH 30.4, MCHC 33.1, RDW 16.1 H, MPV 9.3, Gran % 93.9 H, Lymphocytes % 4.6 L, Monocytes % 1.3 L, Eosinophils % 0.1, Basophils % 0.1, Absolute Granulocytes 7.6 H, Absolute Lymphocytes 0.4 L, Absolute Monocytes 0.1, Absolute Eosinophils 0, Absolute Basophils 0 07/17/17 0506: Troponin I Cancelled 07/17/17 0431: Virus Culture Pending 07/17/17 0430: pH 7.44, pCO2 37, pO2 184 H, HCO3 24, ABG O2 Sat (Measured) 99.0, P-50 (Temp Corrected) Y, Carboxyhemoglobin 0 L, O2 Concentration % 10 LPM, Temperature 96.6 L, O2 Delivery Method NEB VIA A/M, Phlebotomy Draw Site RIGHT RADIAL, Urine Color YEL, Urine Clarity CLEAR, Urine pH 6.0, Ur Specific [place] 1.015, Urine Protein NEG, Urine Ketones NEG, Urine Nitrite NEG, Urine Bilirubin NEG, Urine Urobilinogen 0.2, Ur Leukocyte Esterase NEG, Ur Microscopic SEDIMENT EXAMINED, Urine RBC RARE, Urine WBC RARE, Urine Bacteria RARE H, Urine Hemoglobin TRACE-INTACT H, Urine Glucose NEG 07/17/17 0350: Anion Gap 18 H, Estimated GFR 36 L, BUN/Creatinine Ratio 31.7 H, Glucose 110 H, Calcium 8.7, Total Bilirubin 0.7, Direct Bilirubin 0.4, AST 37, ALT 32, Alkaline Phosphatase 80, Troponin I 0.06, Rtv-H-Mbbllmaulxx Pept 06413 H, Total Protein 7.0, Albumin 4.1, Amylase 68, Lipase 192, CBC w Diff MAN DIFF ORDERED, RBC 4.16 L, MCV 92.2, MCH 30.2, MCHC 32.7 L, RDW 16.0 H, MPV 8.9, Gran % 86.1 H, Lymphocytes % 6.5 L, Monocytes % 7.3, Eosinophils % 0.1, Basophils % 0, Absolute Granulocytes 9.3 H, Segmented Neutrophils 83 H, Band Neutrophils 3, Absolute Lymphocytes 0.7 L, Lymphocytes 7 L, Monocytes 7, Absolute Monocytes 0.8 H, Absolute Eosinophils 0, Absolute Basophils 0, Platelet Estimate ADEQUATE , Polychromasia 1+, Hypochromic-Microcytic 1+, Poikilocytosis 1+, Ovalocytes 1+, Fld Total RBCs Counted 100 Microbiology 07/17 434 NASOPHARYN: Influenza Virus A & B Rapid Smear - COMP INFLUENZA TYPE A Problems: 1. Acute on chronic heart failure. Query diastolic versus systolic 2. Influenza infection. 3. COPD exacerbation 4. Isz-eoxhftw-pqljuhnug diabetes mellitus. 5. Stage III chronic kidney disease 7. Atrial fibrillation. Currently in normal sinus rhythm. Patient is on amiodarone. Plan: -Cardiology follow-up appreciated. Continue diuresis with Lasix 40 mg IV daily. -Monitor input output and record daily weight. -Monitor renal function closely. Obtain records regarding basal care provider. -Obtain echocardiogram and compared to baseline. -HIS CHF exacerbation was likely triggered by his influenza infection. Continue treatment with Tamiflu. -Systemic steroid therapy with Solu-Medrol. He is currently on 40 mg every 12 hours. Continue this for now. -Aspiration precautions. -Mobilize patient as tolerated.
[2017-07-17 17:52] VITALS: BP 160/60
[2017-07-17 22:16] VITALS: BP 150/50
[2017-07-18 06:38] VITALS: BP 142/50
--- NOTE | 2017-07-18 07:34 | PN- Housestaff ---
David PATEL,Sumeet 07/18/17 0733: Subjective Follow-up For: COPD exacerbation/CHF exacerbation Complaints: no complaints Tele-Events Since Last Visit: Sinus rhythm, heart rate ranging from 58-62. Subjective: I followed up and examined the patient today. He is resting comfortably in bed, not in respiratory distress. He says that his cough is much better, and his breathing is better too. He is having dry cough, and thinks that he has something stuck down his throat. Overnight no events noted. Vital signs stable. Review of Systems Constitutional: Reports: see HPI. Respiratory: Reports: cough. Objective Last 24 Hrs of Vital Signs/I&O Vital Signs Date Time Temp Pulse Resp B/P B/P Pulse O2 O2 Flow FiO2 Mean Ox Delivery Rate 07/18 1421 97.9 60 20 122/58 99 Nasal 3.0L Cannula 07/18 0903 60 142/50 07/18 0826 94 Nasal 3.0L Cannula 07/18 0800 97 Nasal 3.0L Cannula 07/18 0638 97.6 60 20 142/50 94 Nasal Cannula 07/18 0000 Nasal 3.0L Cannula 07/17 2216 98.1 63 24 150/50 93 Nasal 3.0L Cannula 07/17 2133 78 160/60 07/17 1920 96 Nasal 3.0L Cannula 07/17 1752 98.0 78 20 160/60 95 07/17 1730 Nasal 3.0L Cannula 07/17 1631 50 20 131/61 Intake & Output 07/18 1600 07/18 0800 07/18 0000 Intake Total 550 200 Output Total 600 350 100 Balance -50 -150 -100 Intake, Oral 550 200 Output, Urine 600 350 100 Patient 56.416 kg Weight Weight Chair scale Measurement Method Physical Exam General Appearance: Alert, Oriented X3, Cooperative, No Acute Distress Other Physical Findings: Head: Normocephalic, atraumatic Eyes: Pupils normal in size, regular, reacting to light and accommodation, EOM normal Throat/mouth: Moist mucosa Neck: Supple, full range of motion Heart: Regular rate, regular rhythm Lung: Crackles present bilaterally, less wheezing today. Abd: Soft, non-tender, no distention appreciated Extremities: Normal knee exam bilaterally, trace pedal edema, Distal neurovascular intact Neurologic: grossly intact Skin: Warm and dry Psychiatric: Calm, cooperative, coherant Current Medications: Current Medications Sig/Rakesh Start time Last Medication Dose Route Stop Time Status Admin Acetaminophen 650 MG Q6P PRN 07/17 0515 AC PO Acetaminophen 1,000 MG Q6P PRN 07/17 0515 AC IV Albuterol Sulfate 3 ML EVERY 4 HRS/AWAKE 07/17 1200 AC 07/17 INH 191 Amiodarone HCl 100 MG 07/17 1000 AC 07/17 PO 1010 Aspirin Buffered 81 MG DAILY 07/17 1000 AC 07/17 PO 1010 Enoxaparin Sodium 30 MG DAILY 07/17 1000 DC 07/17 SC 1010 Finasteride 5 MG DAILY 07/17 1000 AC 07/17 PO 1010 Furosemide 0 .STK-MED ONE 07/17 1433 DC IV Furosemide 40 MG DAILY 07/17 1400 AC 07/17 IV 1437 Heparin Sodium 5,000 UNIT Q8 07/18 0600 AC 07/18 (Porcine) SC 0544 Insulin Aspart 0 TIDAC 07/17 0800 AC SC Ipratropium [place] 2.5 ML EVERY 4 HRS/AWAKE 07/17 1200 AC 07/17 INH 1916 Labetalol HCl 100 MG TID 07/17 1000 AC 07/17 PO 2133 Methylprednisolone 40 MG Q12 07/17 1000 AC 07/17 IV 2141 Morphine Sulfate 2 MG Q4P PRN 07/17 0515 AC IV Oseltamivir Phosphate 30 MG DAILY 07/18 1000 AC PO 07/22 0959 Oseltamivir Phosphate 75 MG BID 07/17 1000 CAN PO 07/21 0959 Pravastatin Sodium 20 MG DAILY 07/17 1000 AC 07/17 PO 1010 Last 24 Hrs of Lab/Niraj Results Last 24 Hrs of Labs/Mics: Laboratory Tests 07/18/17 0625: Anion Gap 15, Estimated GFR 41 L, BUN/Creatinine Ratio 35.6 H 07/17/17 1830: Troponin I 0.05 Assessment/Plan Assessment: 86 yo M with pmh of COPD on 2L/min O2 baseline, CHF 40/20 mg Lasix baseline, CAD s/p angioplasty, HTN, CKD (Cr 1.2 baseline at 2009), L2 compression fracture came in with increased shortness of breath x 1 day and cough and wheeze x 1 week. he had taken extra 40 mg PO at home [employer]LECT[employer] and received 40 mg IV Lasix in the ED. He is currently admitted in the tele for management of folowing issues: # Acute on Chronic CHF: He seems to be diuresing well and is getting better clinically. Will continue diuretic therpay with IV Lasix 40 mg today but will change it to oral dose of Lasix as he takes at home from tomorrow onwards. He is a possible discharge for tomorrow if his condition continues to improve. Continue Daily I/O and weight monitoring. BEP check tomorrow. Echocardiogram showed normal ejection fraction, but right ventricular systolic pressure is increased. He will be following cardiology as an outpatient as well. Cardio recs appreciated. #COPD Exacerbation: Likely 2/2 Influenza infection. Continuing to treat him with Tamiflu, IV steroids for today, but will change to oral prednisone from tomorrow onwards and will prescribe a tapering dose upon discharge. #Influenza A: Will continue Tamiflu per renal dose which is 30 mg daily (regualr dose is 75 mg BID otherwise). Continue resp precautions with masks and hand washing. #Diet: Heart healthy diet #DVT ppx: SC heparin #Code status: Full code Problem List: 1. COPD exacerbation 2. CHF (congestive heart failure) 3. Influenza Pain Ratin Pain Location: - Pain Goal: Pain 4 or less Pain Plan: prn Tomorrow's Labs & Rationales: - Mariluz Guerrero MD 07/18/17 1351: Attending MD Review Statement Attending Statement Attending MD Statement: examined this patient, discuss w/resident/PA/APARTMENT MAINTENANCE TECHNICIAN, agreed w/resident/PA/APARTMENT MAINTENANCE TECHNICIAN, discussed with family, reviewed EMR data (avail), discussed with nursing, discussed with case mgmt, amended to note Attending Assessment/Plan: Patient seen and examined. Resting comfortably and not in acute distress. No issues overnight. No events on telemetry monitoring. He reports feeling better this morning. Reports less shortness of breath. He is afebrile. He has diuresed about 4 kg overnight. On examination he has no jugular venous distention. He has adequate entry with significantly decreased rhonchi bilaterally. He has trace peripheral edema. Recommendations: -Continue diuresis with Lasix 40 mg IV daily today. He continues to do well and transition back to his home dose of Lasix tomorrow. We are currently presuming that his CHF exacerbation was triggered by his influenza infection I will does keep patient on his home Lasix regimen upon discharge. We are waiting records from his primary dental office coordinator's office. -We will begin patient on oral prednisone tomorrow for his COPD exacerbation and taper off. -Nursing staff encouraged to mobilize patient today. -Anticipate discharge in the next 24-48 hours
--- NOTE | 2017-07-18 09:33 | ECHOCARDIOGRAM REPORT ---
ALIVIA CUNNINGHAM Age: 86 : 1930 Gender: M Exam Date: 07/17/2017 11:02 Exam Location: ER Ht (in): 63 Wt (lb): 134 BSA: 1.65 BP: 154 / 70 Ordering Physician: Sara Celaya MD Referring Physician: Sara Celaya MD Technologist: Luis Hylton [facility] Room Number: 6 Indications: HEART FAILURE Rhythm: Sinus Technical Quality: Fair FINDINGS Left Ventricle Normal size left ventricle. Mild concentric left ventricular hypertrophy. Normal left ventricular ejection fraction visually estimated at >65 %. No obvious regional wall motion abnormalities. Right Ventricle Normal right ventricular size and function. Right Atrium Mild right atrial dilatation. Left Atrium Moderate left atrial dilatation. Mitral Valve Mild thickening/calcification of the mitral valve leaflets. Mild mitral annular calcification. Mild mitral regurgitation. Aortic Valve Diffuse thickening of the aortic valve cusps with reduced excursion. Kpye-sn-nhcchhwe aortic stenosis. Mild aortic regurgitation. Tricuspid Valve Tricuspid valve is normal in structure and function. Mild tricuspid regurgitation. Right ventricular systolic pressure estimated to be elevated at 45-50 mmHg. Pulmonic Valve Structurally normal pulmonic valve. There is pulmonic regurgitation. Pericardium Normal pericardium without effusion. No pleural effusion. Great Vessels Normal aortic root dimension. The aortic arch and great vessels are not welle seen. Dilated IVC. CONCLUSIONS Mild concentric left ventricular hypertrophy. Normal left ventricular ejection fraction visually estimated at >65 No obvious regional wall motion abnormalities. Mild right atrial dilatation. Moderate left atrial dilatation. Mild thickening/calcification of the mitral valve leaflets. Mild mitral annular calcification. Mild mitral regurgitation. Diffuse thickening of the aortic valve cusps with reduced excursion. [id number]-rgkogedk aortic stenosis. Mild aortic regurgitation. Right ventricular systolic pressure estimated to be elevated at 45- 50 mmHg. Dilated IVC. Reji Byrne M.D. (Electronically Signed) Final Date: 18 July 2017 09:33 MEASUREMENTS (Male / Female) Normal Values 2D ECHO LV Diastolic Diameter PLAX 5.4 cm 4.2 - 5.9 / 3.9 - 5.3 cm LV Systolic Diameter PLAX 2.7 cm 2.1 - 4.0 cm LV Fractional Shortening PLAX 50.0 % 25 - 46 % LV Ejection Fraction 2D Teich 80.9 % IVS Diastolic Thickness 1.3 cm LVPW Diastolic Thickness 1.3 cm LV Relative Wall Thickness 0.5 RV Internal Dim ED PLAX 3.2 cm 1.9 - 3.8 cm LVOT Diameter 2.0 cm Aortic Root Diameter 3.2 cm LA Systolic Diameter LX 4.3 cm 3.0 - 4.0 / 2.7 - 3.8 cm LA Volume 93.0 cm 18 - 58 / 22 - 52 cm Ascending Aorta Diameter 2.7 cm DOPPLER AV Peak Velocity 260.0 cm/s AV Peak Gradient 27.0 mmHg AV Mean Velocity 187.0 cm/s AV Mean Gradient 16.0 mmHg AV Velocity Time Integral 66.3 cm AI Deceleration Gillespie 136.0 cm/s AI Peak Velocity 288.0 cm/s AI Pressure Half Time 633.5 ms AI Peak Gradient 33.2 mmHg LVOT Peak Velocity 101.0 cm/s LVOT Peak Gradient 4.1 mmHg LVOT Mean Velocity 56.9 cm/s LVOT Mean Gradient 2.0 mmHg LVOT Velocity Time Integral 21.7 cm LVOT Stroke Volume 68.2 cm AV Area Cont Eq vti 1.0 cm AV Area Cont Eq pk 1.2 cm MR Peak Velocity 513.0 cm/s MR Peak Gradient 105.3 mmHg TR Peak Velocity 330.0 cm/s TR Peak Gradient 43.6 mmHg Right Atrial Pressure 10.0 mmHg Pulmonary Artery Systolic Pressu 53.6 mmHg Right Ventricular Systolic Press 53.6 mmHg PV Peak Velocity 112.0 cm/s PV Peak Gradient 5.0 mmHg PV Mean Velocity 75.3 cm/s PV Mean Gradient 3.0 mmHg PV Velocity Time Integral 27.0 cm
--- NOTE | 2017-07-18 10:10 | PN- Cardiology ---
Subjective Subjective: The patient is feeling better. He is less short of breath. He has diuresed about 1 L. His BUN and creatinine remain elevated. His echocardiogram showed good LV systolic function and mild to moderate aortic stenosis. His rapid flu swab was positive for influenza A. Objective Vital Signs and I&Os Vital Signs Date Time Temp Pulse Resp B/P B/P Pulse O2 O2 Flow FiO2 Mean Ox Delivery Rate 07/18 0903 60 142/50 07/18 0826 94 Nasal 3.0L Cannula 07/18 0638 97.6 60 20 142/50 94 Nasal Cannula 07/18 0000 Nasal 3.0L Cannula 07/17 2216 98.1 63 24 150/50 93 Nasal 3.0L Cannula 07/17 2133 78 160/60 07/17 1920 96 Nasal 3.0L Cannula 07/17 1752 98.0 78 20 160/60 95 07/17 1730 Nasal 3.0L Cannula 07/17 1631 50 20 131/61 07/17 1310 98.8 64 22 130/76 94 Nasal 2.0L Cannula 07/17 1140 97.6 51 18 131/62 98 Room Air 07/17 1030 Nasal 3.0L Cannula 07/17 1030 95 Nasal 3.0L Cannula 07/17 1010 98.0 63 20 168/72 07/17 1010 98.0 63 20 168/72 Intake & Output 07/18 1600 07/18 0800 07/18 0000 07/17 1600 07/17 0800 07/17 0000 Intake Total 200 120 250 Output Total 350 100 200 850 Balance -150 -100 -80 -600 Intake, IV 250 Intake, Oral 200 120 Output, Urine 350 100 200 850 Patient 124 lb 134 lb Weight Weight Chair scale Measurement Method Physical Exam: He is in no distress HEENT exam normal Chest diffuse mild rhonchi and some mild expiratory wheezing Heart soft heart sounds, regular rhythm, soft systolic ejection murmur at the base No edema Current Medications: Current Medications Sig/Rakesh Start time Last Medication Dose Route Stop Time Status Admin Acetaminophen 650 MG Q6P PRN 07/17 514 AC PO Acetaminophen 1,000 MG Q6P PRN 07/17 514 AC IV Albuterol Sulfate 3 ML EVERY 4 HRS/AWAKE 07/17 1200 AC 07/18 INH 0824 Amiodarone HCl 100 MG 07/17 1000 AC 07/17 PO 1010 Aspirin Buffered 81 MG DAILY 07/17 1000 AC 07/18 PO 0902 Enoxaparin Sodium 30 MG DAILY 07/17 1000 DC 07/17 SC 1010 Finasteride 5 MG DAILY 07/17 1000 AC 07/18 PO 0902 Furosemide 0 .STK-MED ONE 07/17 1433 DC IV Furosemide 40 MG DAILY 07/17 1400 AC 07/18 IV 0903 Guaifenesin 600 MG Q12 07/18 1000 AC PO Heparin Sodium 5,000 UNIT Q8 07/18 0600 AC 07/18 (Porcine) SC 0544 Insulin Aspart 0 TIDAC 07/17 0800 AC 07/18 SC 0903 Ipratropium [place] 2.5 ML EVERY 4 HRS/AWAKE 07/17 1200 AC 07/18 INH 0824 Labetalol HCl 100 MG TID 07/17 1000 AC 07/18 PO 0903 Methylprednisolone 40 MG Q12 07/17 1000 AC 07/18 IV 0903 Morphine Sulfate 2 MG Q4P PRN 07/17 0515 DC IV Oseltamivir Phosphate 30 MG DAILY 07/18 1000 AC 07/18 PO 07/22 0959 0904 Polyethylene Glycol 17 GM DAILY PRN 07/18 0930 AC PO Potassium Chloride 40 MEQ ONCE ONE 07/18 0930 DC PO 07/18 0931 Pravastatin Sodium 20 MG DAILY 07/17 1000 AC 07/18 PO 0902 Results Last 48 Hrs of Labs/Mics: Laboratory Tests 07/18/17 0625: Anion Gap 15, Estimated GFR 41 L, BUN/Creatinine Ratio 35.6 H 07/17/17 1830: Troponin I 0.05 07/17/17 1100: Troponin I Cancelled 07/17/17 0948: Anion Gap 15, Estimated GFR 41 L, BUN/Creatinine Ratio 34.4 H, Troponin I 0.06 , CBC w Diff NO MAN DIFF REQ, RBC 4.09 L, MCV 91.8, MCH 30.4, MCHC 33.1, RDW 16.1 H, MPV 9.3, Gran % 93.9 H, Lymphocytes % 4.6 L, Monocytes % 1.3 L, Eosinophils % 0.1, Basophils % 0.1, Absolute Granulocytes 7.6 H, Absolute Lymphocytes 0.4 L, Absolute Monocytes 0.1, Absolute Eosinophils 0, Absolute Basophils 0 07/17/17 0506: Troponin I Cancelled 07/17/17 0431: Virus Culture Pending 07/17/17429: pH 7.44, pCO2 37, pO2 184 H, HCO3 24, ABG O2 Sat (Measured) 99.0, P-50 (Temp Corrected) Y, Carboxyhemoglobin 0 L, O2 Concentration % 10 LPM, Temperature 96.6 L, O2 Delivery Method NEB VIA A/M, Phlebotomy Draw Site RIGHT RADIAL, Urine Color YEL, Urine Clarity CLEAR, Urine pH 6.0, Ur Specific [place] 1.015, Urine Protein NEG, Urine Ketones NEG, Urine Nitrite NEG, Urine Bilirubin NEG, Urine Urobilinogen 0.2, Ur Leukocyte Esterase NEG, Ur Microscopic SEDIMENT EXAMINED, Urine RBC RARE, Urine WBC RARE, Urine Bacteria RARE H, Urine Hemoglobin TRACE-INTACT H, Urine Glucose NEG 07/17/17 0350: Anion Gap 18 H, Estimated GFR 36 L, BUN/Creatinine Ratio 31.7 H, Glucose 110 H, Calcium 8.7, Total Bilirubin 0.7, Direct Bilirubin 0.4, AST 37, ALT 32, Alkaline Phosphatase 80, Troponin I 0.06, Htr-L-Eulhamnuplt Pept 70967 H, Total Protein 7.0, Albumin 4.1, Amylase 68, Lipase 192, CBC w Diff MAN DIFF ORDERED, RBC 4.16 L, MCV 92.2, MCH 30.2, MCHC 32.7 L, RDW 16.0 H, MPV 8.9, Gran % 86.1 H, Lymphocytes % 6.5 L, Monocytes % 7.3, Eosinophils % 0.1, Basophils % 0, Absolute Granulocytes 9.3 H, Segmented Neutrophils 83 H, Band Neutrophils 3, Absolute Lymphocytes 0.7 L, Lymphocytes 7 L, Monocytes 7, Absolute Monocytes 0.8 H, Absolute Eosinophils 0, Absolute Basophils 0, Platelet Estimate ADEQUATE , Polychromasia 1+, Hypochromic-Microcytic 1+, Poikilocytosis 1+, Ovalocytes 1+, Fld Total RBCs Counted 100 Microbiology 07/17 434 NASOPHARYN: Influenza Virus A & B Rapid Smear - COMP INFLUENZA TYPE A Recent Imaging Studies: CONCLUSIONS Mild concentric left ventricular hypertrophy. Normal left ventricular ejection fraction visually estimated at >65 No obvious regional wall motion abnormalities. Mild right atrial dilatation. Moderate left atrial dilatation. Mild thickening/calcification of the mitral valve leaflets. Mild mitral annular calcification. Mild mitral regurgitation. Diffuse thickening of the aortic valve cusps with reduced excursion. Mvyl-id-znowfppe aortic stenosis. Mild aortic regurgitation. Right ventricular systolic pressure estimated to be elevated at 45- 50 mmHg. Dilated IVC. Reji Byrne M.D. (Electronically Signed) Final Date: 18 July 2017 09:33 Assessment/Plan Assessment/Plan The patient is clinically improved. He has diuresed. It is not clear why he went into congestive heart failure, possibly due to acute influenza. I recommend continuing IV Lasix today and switching to oral Lasix tomorrow. I would obtain a follow-up chest x-ray. I would try to get records from his primary sales professional Dr. Carrera. Continue telemetry? Yes
--- NOTE | 2017-07-18 10:13 | PN- Student ---
Subjective Subjective: Kimo is an 86y male with a hx of CAD s/p angioplasty, HTN, COPD on 2L O2 prn, CHF, CKD, and an L2 compression fx who was admitted to our service after presenting to the ED, BIBA, secondary to SOB, cough productive of yellow sputum, and wheezing. The day prior to presentation, the patient visited his PCP who prescribed abx. After taking one dose, the patient felt SOB so he decided to double his dose of diuretics. When this did not work, the patient called 911. The week prior, his was sick with flu-like symptoms but didnt seek treatment. Overnight, the patient states he slept well and denies new symptoms or the progression of old ones. Objective Objective: EKG:EKG shows sinus rhythm rate of 68, occasional PAC, diffuse ST-T wave abnormalities, prolonged QT interval. CXR: Increasing interstitial markings and associated peribronchial cuffing. Previous ECHO: , good LV function, mild pulmonary HTN Cardiology Consult: Clear-cut CHF and cardiomegaly. Recommend IV diuretics, serial EKG/trops and an ECHO. Physical Examination: General: AOx3, polite and cooperative with questions. Patient was in LLD position during examination because of back pain. Heart: RR, 3/6 LEI noted over right second intercostal space, rubs, or gallops Lungs: Rales noted dependently and expiratory wheezes appreciated bilaterally in all lung nicole Abdomen: Soft, nontender to palpation Extremeties: No edema noted Results Results: Laboratory Tests 07/18/17 0625: Anion Gap 15, Estimated GFR 41 L, BUN/Creatinine Ratio 35.6 H 07/17/17 1830: Troponin I 0.05 07/17/17 1100: Troponin I Cancelled 07/17/17 0948: Anion Gap 15, Estimated GFR 41 L, BUN/Creatinine Ratio 34.4 H, Troponin I 0.06 , CBC w Diff NO MAN DIFF REQ, RBC 4.09 L, MCV 91.8, MCH 30.4, MCHC 33.1, RDW 16.1 H, MPV 9.3, Gran % 93.9 H, Lymphocytes % 4.6 L, Monocytes % 1.3 L, Eosinophils % 0.1, Basophils % 0.1, Absolute Granulocytes 7.6 H, Absolute Lymphocytes 0.4 L, Absolute Monocytes 0.1, Absolute Eosinophils 0, Absolute Basophils 0 07/17/17 0506: Troponin I Cancelled 07/17/17 0431: Virus Culture Pending 07/17/17429: pH 7.44, pCO2 37, pO2 184 H, HCO3 24, ABG O2 Sat (Measured) 99.0, P-50 (Temp Corrected) Y, Carboxyhemoglobin 0 L, O2 Concentration % 10 LPM, Temperature 96.6 L, O2 Delivery Method NEB VIA A/M, Phlebotomy Draw Site RIGHT RADIAL, Urine Color YEL, Urine Clarity CLEAR, Urine pH 6.0, Ur Specific [place] 1.015, Urine Protein NEG, Urine Ketones NEG, Urine Nitrite NEG, Urine Bilirubin NEG, Urine Urobilinogen 0.2, Ur Leukocyte Esterase NEG, Ur Microscopic SEDIMENT EXAMINED, Urine RBC RARE, Urine WBC RARE, Urine Bacteria RARE H, Urine Hemoglobin TRACE-INTACT H, Urine Glucose NEG 07/17/17 0350: Anion Gap 18 H, Estimated GFR 36 L, BUN/Creatinine Ratio 31.7 H, Glucose 110 H, Calcium 8.7, Total Bilirubin 0.7, Direct Bilirubin 0.4, AST 37, ALT 32, Alkaline Phosphatase 80, Troponin I 0.06, Xhi-H-Yafuvpphuby Pept 18473 H, Total Protein 7.0, Albumin 4.1, Amylase 68, Lipase 192, CBC w Diff MAN DIFF ORDERED, RBC 4.16 L, MCV 92.2, MCH 30.2, MCHC 32.7 L, RDW 16.0 H, MPV 8.9, Gran % 86.1 H, Lymphocytes % 6.5 L, Monocytes % 7.3, Eosinophils % 0.1, Basophils % 0, Absolute Granulocytes 9.3 H, Segmented Neutrophils 83 H, Band Neutrophils 3, Absolute Lymphocytes 0.7 L, Lymphocytes 7 L, Monocytes 7, Absolute Monocytes 0.8 H, Absolute Eosinophils 0, Absolute Basophils 0, Platelet Estimate ADEQUATE , Polychromasia 1+, Hypochromic-Microcytic 1+, Poikilocytosis 1+, Ovalocytes 1+, Fld Total RBCs Counted 100 Microbiology 07/17 743 LOWER RESP: Respiratory Culture - CAN Cancelled: SPECIMEN NOT RECEIVED IN LABORATORY 07/17 743 LOWER RESP: Gram Stain - CAN Cancelled: SPECIMEN NOT RECEIVED IN LABORATORY 07/17 434 NASOPHARYN: Influenza Virus A & B Rapid Smear - COMP INFLUENZA TYPE A 01/31 0353 BLOOD: Blood Culture - RES 07/17 0350 BLOOD: Blood Culture - RES Assessment/Plan Assessment: Kimo is an 86y male with a hx of CAD s/p angioplasty, HTN, COPD on 2L O2 prn, CHF, CKD, and an L2 compression fx who was admitted to our service after presenting to the ED, BIBA, secondary to SOB, cough productive of yellow sputum, and wheezing who was determined to be in CHF exacerbation by cardiology, [place] [address], pre-renal azotemia, positive influenza A swab and extensive cardiovascular history. On physical examination, he was found to have expiratory wheezes and rales. 1) CHF exacerbation 2/2 influenza A infection Plan: Continue to monitor on telemetry O2 2L NC Serial EKG and troponins per cards recommendation Order ECHO per cards recommendation Switch Furosemide PO to IV Strict I/O and weight 2) DM/HTN Plan: Continue home medications 3) Gout Plan: Continue home medications 4) L2 compression fracture Plan: Prn pain medications 5) COPD Plan: Continue O2 2L NC 6) CKD Plan: Figure out baseline BUN/Cr 7) Heavy EtOH use Plan: CAGE and Motivational interviewing. Diet: Heart Healthy DVT ppx: SQ lovenox D/C: taper prednisone 40mg x3d, 30mg x3d, 20mg x3d, 10mg x3d; f/u with PCP
[2017-07-18] MEDS ORDERED: GUAIFENESIN ER600 MG PO (13:08)
[2017-07-18] MEDS ORDERED: MIRALAX119 GM PO (13:08)
[2017-07-18] MEDS ORDERED: TAMIFLU30 M1 PO (13:09)
[2017-07-18 14:21] VITALS: BP 122/58
[2017-07-18 21:45] VITALS: BP 182/60
[2017-07-19 06:41] VITALS: BP 160/62
--- NOTE | 2017-07-19 07:13 | PN- Housestaff ---
David PATEL,Sumeet 07/19/1713: Subjective Follow-up For: COPD exacerbation/CHF exacerbation/Influenza Complaints: no complaints Tele-Events Since Last Visit: SR, no events otherwise. Subjective: Followed up and examined the patient today. He is resting comfortably, appears better than yesterday. He is not in any respiratory distress, does not have any complaints, cough has improved, and is on 2 L/m oxygen. No nursing issues identified either. Review of Systems Constitutional: Reports: no symptoms. Objective Last 24 Hrs of Vital Signs/I&O Vital Signs Date Time Temp Pulse Resp B/P B/P Pulse O2 O2 Flow FiO2 Mean Ox Delivery Rate 07/19 0908 60 182/60 07/19 0908 60 182/60 07/19 0906 60 182/60 07/19 0808 95 Nasal 1.0L Cannula 07/19 0800 Nasal 2.0L Cannula 07/19 0641 97.5 51 18 160/62 97 Nasal 2.0L Cannula 07/18 2151 Nasal 2.0L Cannula 07/18 2145 98.1 58 18 182/60 96 Nasal 2.0L Cannula 07/18 2124 60 182/60 07/18 1635 98 Nasal 3.0L Cannula 07/18 1550 60 122/58 Intake & Output 07/19 1600 07/19 0800 07/19 0000 Intake Total 1500 300 200 Output Total 650 300 200 Balance 850 0 0 Intake, Oral 1500 300 200 Number 1 Bowel Movements Output, Urine 650 300 200 Patient 58.173 kg Weight Weight Bed scale Measurement Method Physical Exam General Appearance: Alert, Oriented X3, Cooperative, No Acute Distress Other Physical Findings: Head: Normocephalic, atraumatic Eyes: Pupils normal in size, regular, reacting to light and accommodation, EOM normal Throat/mouth: Moist mucosa Neck: Supple, full range of motion Heart: Regular rate, regular rhythm Lung: Crackles present bilaterally better than yesterday/airentry is better too b/l, NO wheezing today. Abd: Soft, non-tender, no distention appreciated Extremities: Normal knee exam bilaterally, trace pedal edema, Distal neurovascular intact Neurologic: grossly intact Skin: Warm and dry Psychiatric: Calm, cooperative, coherant Current Medications: Current Medications Sig/Rakesh Start time Last Medication Dose Route Stop Time Status Admin Acetaminophen 650 MG Q6P PRN 07/17 0515 AC PO Acetaminophen 1,000 MG Q6P PRN 07/17 0515 AC IV Albuterol Sulfate 3 ML EVERY 4 HRS/AWAKE 07/17 1200 AC 07/19 INH 1136 Amiodarone HCl 100 MG 07/17 1000 AC 07/19 PO 0908 Aspirin Buffered 81 MG DAILY 07/17 1000 AC 07/19 PO 0908 Finasteride 5 MG DAILY 07/17 1000 AC 07/19 PO 0908 Furosemide 20 MG 1630 07/19 1630 AC PO Furosemide 40 MG 7:30AM 07/19 0730 AC 07/19 PO 0538 Guaifenesin 600 MG Q12 07/18 1000 AC 07/19 PO 0908 Heparin Sodium 5,000 UNIT Q8 07/18 0600 AC 07/19 (Porcine) SC 0538 Insulin Aspart 0 TIDAC 07/17 0800 AC 07/19 SC 1217 Ipratropium [place] 2.5 ML EVERY 4 HRS/AWAKE 07/17 1200 AC 07/19 INH 1136 Labetalol HCl 100 MG TID 07/17 1000 AC 07/19 PO 0908 Oseltamivir Phosphate 30 MG DAILY 07/18 1000 AC 07/19 PO 07/22 0959 0908 Polyethylene Glycol 17 GM DAILY PRN 07/18 0930 AC PO Pravastatin Sodium 20 MG DAILY 07/17 1000 AC 07/19 PO 0908 Prednisone 10 MG DAILY 07/28 1000 AC PO 07/31 0959 Prednisone 20 MG DAILY 07/25 1000 AC PO 07/28 0959 Prednisone 30 MG DAILY 07/22 1000 AC PO 07/25 0959 Prednisone 40 MG DAILY 07/19 1000 AC 07/19 PO 07/22 0959 0908 Last 24 Hrs of Lab/Niraj Results Last 24 Hrs of Labs/Mics: Laboratory Tests 07/19/17 0935: Anion Gap 18 H, Estimated GFR 52 L, BUN/Creatinine Ratio 45.4 H, Magnesium 2.1 Assessment/Plan Assessment: 86 yo M with pmh of COPD on 2L/min O2 baseline, CHF 40/20 mg Lasix baseline, CAD s/p angioplasty, HTN, CKD (Cr 1.2 baseline at 2009), L2 compression fracture came in with increased shortness of breath x 1 day and cough and wheeze x 1 week. he had taken extra 40 mg PO at home [facility] and received 40 mg IV Lasix in the ED. He is currently admitted in the tele for management of folowing issues: # Acute on Chronic diastolicCHF (EF>65%): He seems to be diuresing well and is getting better clinically. He was on IV Lasix until yesterday, and given his clinical condition, he can be switched to by mouth Lasix to his home dose that is 40 mg in the morning and 20 mg in the afternoon. Similarly his steroids has been changed to oral prednisone 40 mg to be tapered as well. He seems to be improving, and will be discharged home with instructions to have 2 L/m oxygen. Echocardiogram showed normal ejection fraction, but right ventricular systolic pressure is increased. He will be following cardiology as an outpatient as well. #COPD Exacerbation: Likely 2/2 Influenza infection. Continuing to treat him with Tamiflu, oral prednisone from today, tapering dose on discharge today. #Influenza A: Will continue Tamiflu per renal dose which is 30 mg daily (regualr dose is 75 mg BID otherwise). Continue resp precautions with masks and hand washing. #Hypokalemia: The patient was hypokalemic yesterday to 3.3, was repleted with 40meq oral KCl. Resolved today. #Before DC, his SpO2 was 92% on 2L/min and 95% on room air for a while, and was put back on 2L/min as instructed for now. He would go home and get his oxygen at 2L/min. #Diet: Heart healthy diet #DVT ppx: SC heparin #Code status: Full code Problem List: 1. CHF (congestive heart failure) 2. COPD exacerbation 3. Influenza Pain Ratin Pain Location: - Pain Goal: Pain 4 or less Pain Plan: prn Tomorrow's Labs & Rationales: - Mariluz Guerrero MD 07/19/17 1200: Attending MD Review Statement Attending Statement Attending MD Statement: examined this patient, discuss w/resident/PA/CATERPILLAR DRIVER, agreed w/resident/PA/CATERPILLAR DRIVER, discussed with family, reviewed EMR data (avail), discussed with nursing, discussed with case mgmt, amended to note Attending Assessment/Plan: Patient seen and examined. Resting comfortably and not in acute distress. Reports feeling better. He is able to ambulate around the unit. Reports mild cough. Denies chest pain. He is afebrile and hemodynamically stable. On examination he is not in any respiratory distress. He is maintaining saturation on his baseline 2 L of oxygen. On auscultation he has adequate entry bilaterally with mild rhonchi. Order has improved compared to presentation. He has no jugular venous distention or peripheral edema. Recommendations: -Patient is medically stable to be discharged home. He will continue on Tamiflu for his influenza infection. -Exacerbation of his chronic diastolic heart failure was likely triggered by his influenza infection. He will be discharged home on his home dose of Lasix and follow-up with his critical care paramedic next week. I have discussed this in detail with the patient's daughter. -His potassium level has improved with supplementation yesterday. He will continue on his home potassium supplements upon discharge.
--- NOTE | 2017-07-19 07:21 | Patient Discharge Instructions ---
Discharge Instructions General Discharge Information You were seen/treated for: CHF Exacerbation; COPD Exacerbation; Influenza Special Instructions: Please follow up with your PCP, humid system operator within seven days of discharge. Please return to emergency if symptoms worsen. Diet Continue normal diet: Yes Recommended Diet: Heart Healthy Activity Full Activity/No Limits: No Activity Self Limited: Yes Acute Coronary Syndrome Inclusion Criteria At DC or during hospital stay patient has or had the following: ACS DIAGNOSIS No Discharge Core Measures Meds if any: Prescribed or Continued at Discharge Meds if any: NOT Prescribed or Continued at Discharge Congestive Heart Failure Inclusion Criteria At DC or during hospital stay patient has or had the following: CHF DIAGNOSIS Yes Discharge Core Measures Meds if any: Prescribed or Continued at Discharge Meds if any: NOT Prescribed or Continued at Discharge Comment EF>65% Cerebrovascular accident Inclusion Criteria At DC or during hospital stay patient has or had the following: CVA/TIA Diagnosis No Discharge Core Measures Meds if any: Prescribed or Continued at Discharge Meds if any: NOT Prescribed or Continued at Discharge Venous thromboembolism Inclusion Criteria VTE Diagnosis No VTE Type NONE VTE Confirmed by (Test) NONE Discharge Core Measures - Per Current guidelines, there needs to be overlap - treatment for the first 5 days of Warfarin therapy. - If discharged on Warfarin prior to 5 days of - overlap therapy, the patient will need to be - assessed for post discharge needs including - *Post discharge parental anticoagulation - *Warfarin and/or parental anticoagulation education - *Follow up date to check INR post discharge At least 5 days overlap therapy as Inpatient No Meds if any: Prescribed or Continued at Discharge Note: Overlap Therapy is Warfarin and Anticoagulant Meds if any: NOT Prescribed or Continued at Discharge
[2017-07-19] MEDS ORDERED: PREDNISONE10 M2 PO ×2 (07:22→12:08)
[2017-07-19 09:06] VITALS: BP 182/60
[2017-07-19 09:08] VITALS: BP 182/60
--- NOTE | 2017-07-19 10:47 | PN- Cardiology ---
Subjective Subjective: The patient feels well. He wants to be discharged. He has no chest pain. His enzymes are negative 3. There've been no arrhythmias. Objective Vital Signs and I&Os Vital Signs Date Time Temp Pulse Resp B/P B/P Pulse O2 O2 Flow FiO2 Mean Ox Delivery Rate 02 0908 60 182/60 07/19 0908 60 182/60 07/19 0906 60 182/60 07/19 0808 95 Nasal 1.0L Cannula 07/19 0800 Nasal 2.0L Cannula 07/19 0641 97.5 51 18 160/62 97 Nasal 2.0L Cannula 07/18 2151 Nasal 2.0L Cannula 07/18 2145 98.1 58 18 182/60 96 Nasal 2.0L Cannula 07/18 2124 60 182/60 07/18 1635 98 Nasal 3.0L Cannula 07/18 1550 60 122/58 07/18 1421 97.9 60 20 122/58 99 Nasal 3.0L Cannula Intake & Output 07/19 1600 07/19 0800 07/19 0000 07/18 1600 07/18 0800 07/18 0000 Intake Total 300 200 550 200 Output Total 300 200 600 350 100 Balance 0 0 -50 -150 -100 Intake, Oral 300 200 550 200 Output, Urine 300 200 600 350 100 Patient 128 lb 124 lb Weight Weight Bed scale Chair scale Measurement Method Physical Exam: HEENT exam is normal Neck veins not distended Chest mild to moderate expiratory wheezing noted Heart soft systolic murmur at the base Extremities no edema Current Medications: Current Medications Sig/Rakesh Start time Last Medication Dose Route Stop Time Status Admin Acetaminophen 650 MG Q6P PRN 07/17 0515 AC PO Acetaminophen 1,000 MG Q6P PRN 07/17 0515 AC IV Albuterol Sulfate 3 ML EVERY 4 HRS/AWAKE 07/17 1200 AC 07/19 INH 0808 Amiodarone HCl 100 MG 07/17 1000 AC 07/19 PO 0908 Aspirin Buffered 81 MG DAILY 07/17 1000 AC 07/19 PO 0908 Finasteride 5 MG DAILY 07/17 1000 AC 07/19 PO 0908 Furosemide 20 MG 1630 07/19 1630 AC PO Furosemide 40 MG 7:30AM 07/19 0730 AC 07/19 PO 0538 Furosemide 40 MG DAILY 07/17 1400 DC 07/18 IV 0903 Guaifenesin 600 MG Q12 07/18 1000 AC 07/19 PO 0908 Heparin Sodium 5,000 UNIT Q8 07/18 0600 AC 07/19 (Porcine) SC 0538 Insulin Aspart 0 TIDAC 07/17 0800 AC 07/18 SC 1822 Ipratropium [place] 2.5 ML EVERY 4 HRS/AWAKE 07/17 1200 AC 07/19 INH 0808 Labetalol HCl 100 MG TID 07/17 1000 AC 07/19 PO 0908 Oseltamivir Phosphate 30 MG DAILY 07/18 1000 AC 07/19 PO 07/22 0959 0908 Polyethylene Glycol 17 GM DAILY PRN 07/18 0930 AC PO Pravastatin Sodium 20 MG DAILY 07/17 1000 AC 07/19 PO 0908 Prednisone 10 MG DAILY 07/28 1000 AC PO 07/31 0959 Prednisone 20 MG DAILY 07/25 1000 AC PO 07/28 0959 Prednisone 30 MG DAILY 07/22 1000 AC PO 07/25 0959 Prednisone 40 MG DAILY 07/19 1000 AC 07/19 PO 07/22 0959 0908 Results Last 48 Hrs of Labs/Mics: Laboratory Tests 07/19/17 0935: Anion Gap 18 H, Estimated GFR 52 L, BUN/Creatinine Ratio 45.4 H, Magnesium 2.1 07/18/17 0625: Anion Gap 15, Estimated GFR 41 L, BUN/Creatinine Ratio 35.6 H 07/17/17 1830: Troponin I 0.05 07/17/17 1100: Troponin I Cancelled Assessment/Plan Assessment/Plan The patient is clinically improved. He has diuresed. It is not clear why he went into congestive heart failure, possibly due to acute influenza. He is now on oral Lasix and I would send him home on his usual dose. He may need bronchodilators for his persistent bronchospasm. He can follow-up with his usual physicians after discharge. I would recommend a chest x-ray today for documentation of improvement in his congestive heart failure.
[2017-07-19] MEDS ORDERED: MIRALAX119 GM PO (12:08)
[2017-07-19] MEDS ORDERED: GUAIFENESIN ER600 MG PO (12:08)
[2017-07-19] MEDS ORDERED: TAMIFLU30 M1 PO (12:08)
--- NOTE | 2017-07-19 14:36 | Discharge Summary ---
Visit Information Visit Dates Admission Date: 07/17/17 Hospital Course Course Attending Physician: Mariluz Guerrero MD Primary Care Physician: Kate Johnson MD Allergies: Coded Allergies: No Known Allergies (07/17/17) Disposition Summary Disposition Discharge Disposition: home health services Discharge Instructions General Discharge Information Code Status: Full Code Medications at Discharge Discharge Medications: Continue taking these medications: Allopurinol (Allopurinol) 100 MG TABLET 1 Tablet ORAL DAILY Comments: NOT GIVEN IN HOSPITAL Amiodarone (Cordarone) 200 MG TAB 0.5 Tablet ORAL SATURDAY, SATURDAY AND SATURDAY Comments: Last Taken: 07/19/17 Time: 9AM Aspirin (Ecotrin*) 81 MG TABLET.DR 1 Tablet ORAL DAILY Comments: Last Taken: 07/19/17 Time: 9AM Cholecalciferol (Vitamin D3) (Vitamin D) 1,000 UNIT TABLET 1 Tablet ORAL DAILY Comments: NOT GIVEN IN HOSPITAL Ferrous Sulfate (Ferrous Sulfate) 325 MG (65 MG IRON) TABLET 1 Tablet ORAL DAILY Comments: Last Taken: 07/19/17 Time: 9AM Finasteride (Finasteride) 5 MG TABLET 1 Tablet ORAL DAILY Comments: Last Taken: 07/19/17 Time: 9AM Labetalol HCl (Labetalol HCl) 100 MG TABLET 1 Tablet ORAL THREE TIMES DAILY Comments: Last Taken: 07/19/17 Time: 9AM Lisinopril (Lisinopril) 10 MG TABLET 1 Tablet ORAL DAILY Comments: NOT GIVEN IN HOSPITAL Potassium Chloride (Potassium Chloride) 20 MEQ TAB.ER.PRT 1 Tablet ORAL DAILY Comments: Last Taken: 07/18/17 Time: 12PM Pravastatin Sodium (Pravachol) 20 MG TABLET 1 Tablet ORAL DAILY Comments: Last Taken: 07/19/17 Time: 9AM Minoxidil (Minoxidil) 10 MG TABLET 0.25 Tablet ORAL DAILY Comments: NOT GIVEN IN HOSPITAL Furosemide (Furosemide) 20 MG TABLET 2 Tablet ORAL 7:30AM Comments: Last Taken: 07/19/17 Time: 5:30AM Furosemide (Furosemide) 20 MG TABLET 1 Tablet ORAL Every night Comments: NOT GIVEN IN HOSPITAL Start taking the following new medications: Oseltamivir Phosphate (Tamiflu) 30 MG CAPSULE 1 Capsule ORAL DAILY Qty = 4 No Refills Instructions: . Comments: Last Taken: 07/19/17 Time: 9AM Guaifenesin (Guaifenesin ER) 600 MG TAB.ER.12H 1 Tablet ORAL EVERY 12 HOURS as needed for COUGH Qty = 10 No Refills Instructions: . Comments: Last Taken: 07/19/17 Time: 9AM Polyethylene Glycol 3350 (Miralax) 17 GRAM/DOSE POWDER 17 Gram ORAL DAILY as needed for CONSTIPATION Qty = 10 Refills = 1 Instructions: . Comments: NOT GIVEN IN HOSPITAL Prednisone (Prednisone) 10 MG TABLET 0 ORAL SEE INSTRUCTIONS Qty = 27 No Refills Instructions: TAKE 4 TABS ON 07/20-07/21 TAKE 3 TABS ON 07/22-07/24 TAKE 2 TABS ON 07/25-07/27 TAKE ONE TAB ON 07/28-07/30 THEN STOP.. Comments: Last Taken: 07/19/17 Time: 9AM TAKE 4 TABS ON 07/20-07/21 TAKE 3 TABS ON 07/22-07/24 TAKE 2 TABS ON 07/25-07/27 TAKE ONE TAB ON 07/28-07/30 THEN STOP.
== END 2017-07-19 15:00 | disposition home health service (06) | DRG 291 ==
LOC: ERH 03:39 → ERHI 04:47 → 1NO 04:47 → ENRESERV 13:28 → 1NO 16:45 → ENTRNSPT 16:50 → EDTRNSPTSTS 17:04 → 1NO 17:13 → CMPTRNSPT 17:33 → ENPENDDIS 07-19 11:42 → ENTRNSPT 07-19 14:30 → 1NO 07-19 15:00 → CMPTRNSPT 07-19 15:06
PROVIDERS: Pediatrics; Student in an Organized Health Care Education/Training Program
DX: I13.0 Hypertensive heart and chronic kidney disease with heart failure and stage 1 through stage 4 chronic kidney disease, or unspecified chronic kidney disease (principal); I50.33 Acute on chronic diastolic (congestive) heart failure; J44.1 Chronic obstructive pulmonary disease with (acute) exacerbation; J09.X2 Influenza due to identified novel influenza A virus with other respiratory manifestations; I48.91 Unspecified atrial fibrillation; N18.3 Chronic kidney disease, stage 3 (moderate); R06.02 Shortness of breath; Z98.61 Coronary angioplasty status; Z79.01 Long term (current) use of anticoagulants; Z87.891 Personal history of nicotine dependence; E87.6 Hypokalemia; M48.56XS Collapsed vertebra, not elsewhere classified, lumbar region, sequela of fracture
CPT/HCPCS: 1NP; 36415; 71045; 81001; 82436; 87040; 87070; 87804; 87804-59; 93005; 93010; 93306; 96374; 96375; 99291; J0456; J0696; J1644; J1650; J1940; J2920; J2930; J7060